=== PATIENT | male | born 1950 | race Caucasian/White ===

== ENCOUNTER → 2018-02-03 | Outpatient (REF) | payer MEDICARE, OTHER ==
[~2018-02-03] MED LIST: AMOX-559 PO; PARO-242 PO; PER PO
== END ==
LOC: ZZSENDIN 12:00
PROVIDERS: ATTEND Orthopaedic Surgery Hand Surgery
DX: M60.242 Foreign body granuloma of soft tissue, not elsewhere classified, left hand (principal); Z18.9 Retained foreign body fragments, unspecified material
CPT/HCPCS: 88305

== ENCOUNTER → 2018-03-17 | Outpatient (CLI) | payer MEDICARE, OTHER ==
[~2018-03-17] MED LIST changes: +PARO-46 PO
[2018-03-17 11:19] LABS: PLATELET COUNT, AUTOMATED 154 K/uL (150-450)
[2018-03-17 11:45] LABS: LDL CHOLESTEROL 105 mg/dl
== END ==
LOC: LAB 10:55
PROVIDERS: ATTEND Internal Medicine
DX: Z12.5 Encounter for screening for malignant neoplasm of prostate (principal); E78.2 Mixed hyperlipidemia; R73.9 Hyperglycemia, unspecified; F41.9 Anxiety disorder, unspecified
CPT/HCPCS: 36415; 81001; 83036; 84443; 85025; G0103; 82040; 82247; 82310; 82374; 82435; 82465; 82565; 82947; 83718; 84075; 84132; 84153; 84155; 84295; 84450; 84460; 84478; 84520